=== PATIENT | male | born 1995 | race African-American/Black ===

== ENCOUNTER 2017-01-24 22:42 | Emergency (ER) | payer OTHER ==
[~2017-01-24] VITALS: Ht 193 cm; Wt 82.0 kg
[2017-01-24 22:51] VITALS: BP 129/78
== END 2017-01-25 01:34 | disposition left against medical advice (07) ==
LOC: ER 22:42
DX: M54.9 Dorsalgia, unspecified (principal); Z53.21 Procedure and treatment not carried out due to patient leaving prior to being seen by health care provider

== ENCOUNTER 2017-01-25 13:59 | Emergency (ER) | payer OTHER ==
[~2017-01-25] VITALS: Ht 193 cm; Wt 82.0 kg
[2017-01-25] MEDS ORDERED: IBUPROFEN 600MG TABLET PO ONE (17:45)
[2017-01-25 17:47] VITALS: BP 113/65
== END 2017-01-25 18:11 | disposition home or self-care (01) ==
LOC: ER 13:59
DX: S10.93XA Contusion of unspecified part of neck, initial encounter (principal); S40.019A Contusion of unspecified shoulder, initial encounter; V49.88XA Car occupant (driver) (passenger) injured in other specified transport accidents, initial encounter; Y93.89 Activity, other specified; Y92.89 Other specified places as the place of occurrence of the external cause; Y99.8 Other external cause status
CPT/HCPCS: 99282